=== PATIENT | female | born 1960 ===

== ENCOUNTER 2016-10-12 09:50 | Emergency (ER) | payer BC ==
--- NOTE | 2016-10-12 10:18 | UC ---
Vincent Frank Rebecca, scribed for Malick Anderson MD on 10/12/16 at 1007 . Complaint Female HPI - HPI Summary HPI Summary: Pt is a 56 y/o F who presents to [facility] c/o dysuria, increased urinary frequency , LLQ pain and mild lumbar back pain since yesterday. Abd pain is characterized as pressure. Sx aggravated by urination, alleviated by nothing. Denies hematuria , fever, chills, N/V, edema, rhinorrhea, sore throat and vaginal bleeding and discharge. PMHX UTI several years ago. - History Of Current Complaint Chief Complaint: GU Stated Complaint: URINARY ISSUE Time Seen by Provider: 10/12/16 10:01 Hx Obtained From: Patient Onset/Duration: Lasting Days - Last night, Still Present Severity Currently: Mild Aggravating Factor(s): Urination Alleviating Factor(s): Nothing Associated Signs And Symptoms: Positive: Back Pain. Negative: Fever, Vaginal Bleeding/Discharge - Allergies/Home Medications Allergies/Adverse Reactions: Allergies Allergy/AdvReac Type Severity Reaction Status Date / Time Codeine Allergy Abdominal Verified 10/12/16 10:00 Pain Penicillins Allergy Hives/Diff. Verified 10/12/16 10:00 Breathing/I tching Sulfa Antibiotics Allergy Abdominal Verified 10/12/16 10:00 Pain Home Medications: Home Medications Aspirin EC Low Dose* [Ecotrin EC Low Dose 81 MG*] 10/12/16 [History] Carvedilol Phosphate [Coreg Cr] 20 mg PO 10/12/16 [History] Cholecalciferol [Vitamin D] 1,000 unit PO 10/12/16 [History] Diltiazem CD CAP* [Cardizem CD CAP*] 120 mg PO DAILY 10/12/16 [History Confirmed 10/12/16] Docusate CAP* [Colace Cap*] 100 mg PO DAILY 10/12/16 [History Confirmed 10/12/16 ] Hydrochlorothiazide TAB* [Hydrodiuril TAB*] 25 mg PO DAILY 10/12/16 [History Confirmed 10/12/16] Potassium Chloride [K-Tab] 20 meq PO 10/12/16 [History] Valsartan TAB* [Diovan TAB*] 160 mg PO DAILY 10/12/16 [History Confirmed ] PMH/Surg Hx/FS Hx/Imm Hx Cardiovascular History: Hypertension GI/ History: Other Other GI/ History: UTI - Surgical History Surgical History: Yes Surgery Procedure, Year, and Place: ablation. skin removal. heart cath - Family History Known Family History: Positive: Hypertension - Social History Alcohol Use: Occasionally Substance Use Type: None Smoking Status (MU): Never Smoked Tobacco Review of Systems Constitutional: Negative Skin: Negative Eyes: Negative ENT: Negative Respiratory: Negative Cardiovascular: Negative Gastrointestinal: Abdominal Pain - LLQ pressure Genitourinary: Dysuria, Frequency Motor: Negative Neurovascular: Negative Musculoskeletal: Arthralgia - Mild lumbar back pain Neurological: Negative Psychological: Negative All Other Systems Reviewed And Are Negative: Yes - Comments Additional Review of Systems Comments: NEGATIVE: Hematuria, fever, chills, N/V, edema, rhinorrhea, sore throat and vaginal bleeding Physical Exam Triage Information Reviewed: Yes Vital Signs: Initial Vital Signs Pulse 92 10/12/16 09:51 Resp 16 10/12/16 09:51 BP 149/73 10/12/16 09:51 Pulse Ox 98 10/12/16 09:51 Vital Signs Reviewed: Yes - Additional Comments The patient is well-nourished in no acute distress and in no acute pain. The skin is warm and dry and skin color reflects adequate perfusion. HEENT: The head is normocephalic and atraumatic. The pupils are equal and reactive. The conjunctivae are clear and without drainage. Nares are patent and without drainage. Mouth reveals moist mucous membranes and the throat is without erythema and exudate. The external ears are intact. The ear canals are patent and without drainage. The tympanic membranes are intact. Respiratory: Chest is non-tender. Lungs are clear to auscultation and breath sounds are symmetrical and equal. Cardiovascular: Hear is regular rate and rhythm. There is no murmur or rub auscultated. There is no peripheral edema and pulses are symmetrical and equal. Abdomen: The abdomen is soft with some LLQ pain. There are normal bowel sounds heard in all four quadrants and there is no organomegaly palpated. No CVA tenderness. Musculoskeletal: Extremities are non-tender with full range of motion. There is good capillary refill. Neurological: Patient is alert and oriented to person, place and time. Psychiatric: The patient has an appropriate affect and does not exhibit any anxiety or depression. Re-Evaluation - Re-Evaluation First Eval Re-Evaluation Time: 10:09 Comment: Discussed with patient negative urine and has started that she has had these before with similar sx. Complaint Female Dx - Course Course Of Treatment: Pt is a 56 y/o F who presents to [facility] c/o dysuria, increased urinary frequency, LLQ pain and mild lumbar back pain since yesterday. Abd pain is characterized as pressure. Sx aggravated by urination. Denies hematuria, fever, chills, N/V, edema, rhinorrhea, sore throat and vaginal bleeding. PMHX UTI several years ago. UA is negative. Discussed UA with the pt who disclosed that she has had UTIs before and that current sx are similar to previous infections. She will be D/C to home with Dx of UTI and Rx for Ciprofloxacin and a followup with her PCP Dr. Haji. She understands and agrees. Patient medications reviewed this visit. Elevated BP noted and advised to f/u with PCP. - Differential Dx/Diagnosis Differential Diagnosis/HQI/PQRI: Sexually Transmitted Disease, Ureteral Stone, Urinary Tract Infection Provider Diagnoses: UTI Discharge - Discharge Plan Condition: Stable Disposition: HOME Prescriptions: Ciprofloxacin TAB* [Cipro 500 MG TAB*] 500 mg PO BID #14 tab Patient Education Materials: Urinary Tract Infection in Women (ED) Referrals: Raman Haji MD [Medical Doctor] - 3 Days The documentation as recorded by the Vincent gutiérrez Rebecca accurately reflects the service I personally performed and the decisions made by me, Malick Anderson MD.
--- NOTE | 2016-10-13 17:51 | UC ---
Progress - Progress Note Progress Note: Urine culture returned and shows no growth---call patient if sx have resolved may stop antibiotics, if she has continued symptoms stop antibiotic and re- check at urgent care, emergency department or with primary care. Re-Evaluation - Re-Evaluation First Eval Re-Evaluation Time: 10:09 Comment: Discussed with patient negative urine and has started that she has had these before with similar sx.
== END 2016-10-12 10:18 | disposition home or self-care (01) ==
LOC: UCEAST 09:50
DX: N39.0 Urinary tract infection, site not specified (principal); Z87.440 Personal history of urinary (tract) infections; I10 Essential (primary) hypertension
CPT/HCPCS: 81003; 87086; 99202; G0463